=== PATIENT | female | born 1975 | race Caucasian/White ===

== ENCOUNTER 2016-11-07 15:16 | Emergency (ER) | payer MEDICAID ==
[~2016-11-07 15:16] MED LIST: CARAFATE1 GM PO; COMPAZINE10 MG PO; DESYREL DPS100 MG PO; GABAPENTIN300 MG PO; KLONOPIN0.5 MG PO; MAALOX DPS30 ML PO; MORPHINE SULFAT30 M3 PO; PAXIL20 MG PO; PROTONIX40 MG PO; REGLAN10 MG PO; SURFAK240 MG PO; TOPAMAX25 MG PO; TOPROL XL25 MG PO; TYLENOL325 MG PO; ZANAFLEX4 MG PO
--- NOTE | 2016-11-08 10:00 | ER ---
ADMIT: 11/07/2016 RM/LOC: ER [facility] MR#: [id number] [facility] [address] [place] [id number] LUC[address] NICK [address] [place] [address] Emergency Room Report SEX: F AGE: 41 : 1975 DATE: 11/07/2016 ADDENDUM: A 41-year-old white female coming in with nose pain after small son inadvertently ran his nose in to it. Nasal bone x-rays were negative. she should follow up as needed. CONDITION ON DISCHARGE: Good. Rajesh Wolff MD/ [email or web address] JOB #: [id number] CC: Rajesh Wolff MD, Attending Physician Sam Cabrera MD, Family Physician
== END 2016-11-07 17:49 | disposition home or self-care (01) ==
LOC: ER 15:16
DX: S00.33XA Contusion of nose, initial encounter (principal); F17.210 Nicotine dependence, cigarettes, uncomplicated; Z88.1 Allergy status to other antibiotic agents; Z88.5 Allergy status to narcotic agent; W51.XXXA Accidental striking against or bumped into by another person, initial encounter

== ENCOUNTER 2016-12-30 10:54 | Emergency (ER) | payer MEDICAID ==
--- NOTE | 2017-01-04 15:21 | ER ---
ADMIT: 12/30/2016 RM/LOC: ER [facility] MR#: [id number] [address] [id number] LUCAS NICK [address] [place] [address] Emergency Room Report SEX: F AGE: 41 : 1975 DATE: 12/30/2016 This 41-year-old presents to emergency room with cough, nausea, and vomiting. She says that when she coughs, she throws up. This has been going on for 3 days. She also complains of congestion and has a history of anxiety. PAST MEDICAL HISTORY: Atrial fibrillation, migraines, DJD, and fibromyalgia. ALLERGIES: ALLERGIC TO CELEBREX, MELOXICAM, CODEINE, AND CLINDAMYCIN. PHYSICAL EXAMINATION: VITAL SIGNS: Blood pressure 122/82, heart rate is 87, and O2 sats 98%. She is afebrile. NECK: Supple. HEENT: Normal inspection. RESPIRATION: Mild wheezes on the upper lobes. CVS: Regular in rate and rhythm. SKIN: Good color and turgor. EXTREMITIES: Nontender. NEUROLOGIC: Oriented x4. She was given a breathing treatment with DuoNeb. X-ray does not show any pathology. CLINICAL IMPRESSION: Upper respiratory infection with cough that leads to nausea and vomiting. She was given a prescription of Zofran, albuterol, and Tessalon Perles. Follow up primary provider. Hydration. NICHOLE Soriano / Mino Hooker MD / tuyetl JOB #: [id number] CC: Mino Hooker MD, Attending Physician
== END 2016-12-30 12:56 | disposition home or self-care (01) ==
LOC: ER 10:54
DX: J06.9 Acute upper respiratory infection, unspecified (principal); G43.909 Migraine, unspecified, not intractable, without status migrainosus; F32.9 Major depressive disorder, single episode, unspecified; F41.9 Anxiety disorder, unspecified; Z88.1 Allergy status to other antibiotic agents; Z88.6 Allergy status to analgesic agent; Z88.8 Allergy status to other drugs, medicaments and biological substances